=== PATIENT | female | born 1995 | race Two or more races ===

== ENCOUNTER 2019-03-05 13:16 | Emergency (ER) | payer MEDICAID ==
[~2019-03-05] VITALS: Ht 152.4 cm; Wt 99.8 kg
[2019-03-05 13:30] VITALS: BP 145/94
[2019-03-05] MEDS ORDERED: ALBUTEROL SULF 2.5 MG/0.5ML(0.5%) NEB SOLN NEB ONE (14:45)
[2019-03-05] MEDS ORDERED: methylPREDNISolone SOD SUCC 125 MG/2 ML VL IM ONE (14:45)
[2019-03-05] MEDS ORDERED: IPRATROPIUM BROM 0.5 MG/2.5ML INH SOL NEB ONE (14:45)
== END 2019-03-05 15:21 | disposition home or self-care (01) ==
LOC: ER 13:24
DX: O99.512 Diseases of the respiratory system complicating pregnancy, second trimester (principal); J45.901 Unspecified asthma with (acute) exacerbation; Z3A.16 16 weeks gestation of pregnancy
CPT/HCPCS: 94640; 96372; 99283; J2930; J7611; J7644

== ENCOUNTER 2020-11-04 23:07 | Emergency (ER) | payer MEDICAID ==
[~2020-11-04] VITALS: Ht 162.6 cm; Wt 104.3 kg
[2020-11-04 23:15] VITALS: BP 129/68
== END 2020-11-05 01:42 | disposition left against medical advice (07) ==
LOC: ER 23:07
DX: R06.02 Shortness of breath (principal); Z53.21 Procedure and treatment not carried out due to patient leaving prior to being seen by health care provider

== ENCOUNTER 2021-06-13 10:58 | Emergency (ER) | payer MEDICAID ==
[~2021-06-13] VITALS: Ht 162.6 cm; Wt 110.2 kg
[2021-06-13 11:35] LABS: Basophils # (auto) 0.1 10 ^3/uL (0-0.2); Basophils % (auto) 0.7 % (0.0-2.0); Eosinophils # (auto) 0.1 10 ^3/uL (0-0.8); Eosinophils % (auto) 1.1 % (0.0-7.0); Hemoglobin 13.7 g/dL (12.2-16.2); Lymphocytes # (auto) 2.1 10 ^3/uL (0.4-5.4); Lymphocytes % (auto) 21.8 % (10.0-50.0); Mean Corpuscular Hemoglobin 28.7 pg (28.0-32.0); Mean Corpuscular Hgb Conc. 34.1 g/dL (32.0-36.0); Mean Corpuscular Volume 84.2 fL (80.0-100.0); Monocytes # (auto) 0.4 10 ^3/uL (0-1.3); Monocytes % (auto) 4.4 % (0.0-12.0); Neutrophils # (auto) 6.8 10 ^3/uL (1.6-8.6); Red Blood Cells 4.75 10^6/uL (4.0-5.20); Red Cell Distribution Width 15.4 % (11.8-14.3); White Blood Cell 9.5 10^3/uL (4.4-10.8)
[2021-06-13 11:47] VITALS: BP 118/88
[2021-06-13 11:55] LABS: Albumin 3.1 g/dL (3.4-5.0); Calcium 8.8 mg/dL (8.5-10.1); Potassium 3.8 mmol/L (3.5-5.1)
[2021-06-13 11:59] LABS: BUN/Creatinine Ratio 10.9; Bilirubin, Total 0.3 mg/dL (0.2-1.0); Total Protein 7.8 g/dL (6.4-8.2)
[2021-06-13] MEDS ORDERED: ONDANSETRON ODT 4 MG TAB PO ONE (13:30)
[2021-06-13] MEDS ORDERED: ACETAMINOPHEN 500 MG TAB PO ONE (13:30)
== END 2021-06-13 14:00 | disposition home or self-care (01) ==
LOC: ER 10:58
DX: O26.891 Other specified pregnancy related conditions, first trimester (principal); G43.909 Migraine, unspecified, not intractable, without status migrainosus; O21.8 Other vomiting complicating pregnancy; O99.511 Diseases of the respiratory system complicating pregnancy, first trimester; J45.909 Unspecified asthma, uncomplicated; Z3A.12 12 weeks gestation of pregnancy
CPT/HCPCS: 36415; 80053; 81002; 81025; 84702; 85025; 99283; Q0162

== ENCOUNTER 2022-06-21 19:12 | Emergency (ER) | payer MEDICAID ==
[~2022-06-21] VITALS: Ht 162.6 cm; Wt 100.0 kg
[2022-06-21 19:12] VITALS: BP 138/85
== END 2022-06-22 00:36 | disposition left against medical advice (07) ==
LOC: ER 19:12
DX: R10.2 Pelvic and perineal pain (principal); R51.9 Headache, unspecified; Z53.21 Procedure and treatment not carried out due to patient leaving prior to being seen by health care provider

== ENCOUNTER 2023-06-14 05:47 | Emergency (ER) | payer MEDICAID ==
[~2023-06-14] VITALS: Ht 162.6 cm; Wt 228.0 kg
[2023-06-14 07:05] VITALS: BP 136/70; PULSE 83; RESP 18; TEMP 98.1; O2SAT 98
[2023-06-14] MEDS ORDERED: PENI500T2 PO (07:20)
[2023-06-14] MEDS ORDERED: METH4PAK PO (07:20)
== END 2023-06-14 07:44 | disposition home or self-care (01) ==
LOC: ER 05:47
DX: J03.90 Acute tonsillitis, unspecified (principal); J45.909 Unspecified asthma, uncomplicated